=== PATIENT | male | born 1975 | race Caucasian/White ===

== ENCOUNTER 2025-02-03 16:47 | Inpatient (IN) | payer SELFPAY ==
[~2025-02-03] VITALS: Ht 167.6 cm; Wt 79.2 kg
[2025-02-03 17:52] VITALS: BP 108/61; TEMP 98.2; O2SAT 95
[2025-02-03] MEDS ORDERED: ONDANSETRON 4MG 2ML VIAL IV PRN (17:55)
[2025-02-03] MEDS ORDERED: ACETAMINOPHEN 325 MG TAB PO PRN (17:55)
[2025-02-03] MEDS ORDERED: MOM 30 ML SUSPENSION UDC PO PRN (17:55)
[2025-02-03 18:08] LABS: BASO # 0.0 10^3/uL (0.0-0.2); BASO % 0.2 % (0.0-1.0); EOS # 0.0 10^3/uL (0.0-0.5); EOS % 0.0 % (0.0-3.0); LYMPH # 3.1 10^3/uL (1.5-5.0); LYMPH % 18.1 % (24.0-44.0); MONO # 1.4 10^3/uL (0.0-0.8); MONO % 8.3 % (2.0-8.0); NEUTROPHILS # 12.4 10^3/uL (1.5-8.5); NEUTROPHILS % 72.7 % (36.0-66.0); PLATELET COUNT, AUTOMATED 442 10^3/uL (150-450)
[2025-02-03] MEDS ORDERED: AMLO1TAB24 PO (18:35)
[2025-02-03] MEDS ORDERED: ATOR40TA75 PO (18:35)
[2025-02-03] MEDS ORDERED: ACET-907 PO (18:36)
[2025-02-03] MEDS ORDERED: LISI40TA10 PO (18:36)
[2025-02-03 18:38] LABS: CALCIUM LEVEL 9.2 MG/DL (8.5-10.1); CARBON DIOXIDE LEVEL 24.0 MMOL/L (20-31); CHLORIDE LEVEL 96.0 MMOL/L (98-107); CREATININE FOR GFR 4.87 MG/DL (0.70-1.30); GLOMERULAR FILTRATION RATE 13.9 (>60); POTASSIUM SERUM 4.0 MMOL/L (3.5-5.1); SODIUM LEVEL 133.0 MMOL/L (136-145)
[2025-02-03] MEDS ORDERED: HOME MED LIST COMPLETE! XX SCH (18:40)
[2025-02-03 20:02] VITALS: BP 109/60; TEMP 98.1; O2SAT 98
[2025-02-03] MEDS: THIAMINE 100 MG TAB PO SCH (20:32)
[2025-02-03] MEDS: NS (Normal Saline) 0.9% 1,000 ML IV SCH (20:32)
[2025-02-03 22:00] VITALS: BP 109/60
[2025-02-04] MEDS: MAALOX 30 ML SUSP *UDC PO PRN (00:40)
[2025-02-04 03:37] VITALS: BP 127/81; TEMP 98.1; O2SAT 99
[2025-02-04 06:00] VITALS: BP 127/81
[2025-02-04 07:46] LABS: CALCIUM LEVEL 8.8 MG/DL (8.5-10.1); CARBON DIOXIDE LEVEL 25.0 MMOL/L (20-31); CHLORIDE LEVEL 103.0 MMOL/L (98-107); CREATININE FOR GFR 1.98 MG/DL (0.70-1.30); GLOMERULAR FILTRATION RATE 40.9 (>60); MAGNESIUM LEVEL 2.6 MG/DL (1.8-2.4); POTASSIUM SERUM 4.2 MMOL/L (3.5-5.1); SODIUM LEVEL 139.0 MMOL/L (136-145)
[2025-02-04 07:53] LABS: BASO # 0.0 10^3/uL (0.0-0.2); BASO % 0.1 % (0.0-1.0); EOS # 0.0 10^3/uL (0.0-0.5); EOS % 0.0 % (0.0-3.0); LYMPH # 1.3 10^3/uL (1.5-5.0); LYMPH % 13.2 % (24.0-44.0); MONO # 0.6 10^3/uL (0.0-0.8); MONO % 5.6 % (2.0-8.0); NEUTROPHILS # 8.0 10^3/uL (1.5-8.5); NEUTROPHILS % 80.6 % (36.0-66.0); PLATELET COUNT, AUTOMATED 376 10^3/uL (150-450)
[2025-02-04] MEDS: FOLIC ACID 1 MG TAB PO SCH (09:06)
[2025-02-04] MEDS: MULTIVITAMINS/MINERALS THERAP 1 TAB PO SCH (09:06)
[2025-02-04] MEDS: HEPARIN SOD 5000 UNITS/ML 1 ML VIAL/SYRINGE SC SCH (09:06)
[2025-02-04 12:00] VITALS: BP 129/70; TEMP 97.7; O2SAT 99
[2025-02-04 14:00] VITALS: BP 126/80
[2025-02-04 19:55] VITALS: BP 126/81; TEMP 97.7; O2SAT 98
[2025-02-04 22:00] VITALS: BP 126/81
[2025-02-05 04:00] VITALS: BP 164/97; TEMP 97.9; O2SAT 99
[2025-02-05 06:00] VITALS: BP 164/97
[2025-02-05 08:18] LABS: CALCIUM LEVEL 8.9 MG/DL (8.5-10.1); CARBON DIOXIDE LEVEL 23 MMOL/L (20-31); CHLORIDE LEVEL 110 MMOL/L (98-107); CREATININE FOR GFR 0.84 MG/DL (0.70-1.30); GLOMERULAR FILTRATION RATE > 90.0 (>60); MAGNESIUM LEVEL 2.1 MG/DL (1.8-2.4); POTASSIUM SERUM 3.9 MMOL/L (3.5-5.1); SODIUM LEVEL 143 MMOL/L (136-145)
[2025-02-05 12:00] VITALS: BP 150/85; TEMP 98.1; O2SAT 100
== END 2025-02-05 13:45 | disposition home or self-care (01) | DRG 469 ==
LOC: M MSPAV 17:41
PROVIDERS: ADMIT Student in an Organized Health Care Education/Training Program; ATTEND Student in an Organized Health Care Education/Training Program
PROC: B246ZZZ Ultrasonography of Right and Left Heart (ICD-10-PCS; principal; 2025-02-04)
DX: N17.9 Acute kidney failure, unspecified (principal); I10 Essential (primary) hypertension; K21.9 Gastro-esophageal reflux disease without esophagitis; E55.9 Vitamin D deficiency, unspecified; E78.5 Hyperlipidemia, unspecified; M54.50 Low back pain, unspecified; G89.29 Other chronic pain; F17.200 Nicotine dependence, unspecified, uncomplicated; K52.9 Noninfective gastroenteritis and colitis, unspecified; F10.10 Alcohol abuse, uncomplicated; F12.10 Cannabis abuse, uncomplicated; R11.16 Cannabis hyperemesis syndrome; E86.0 Dehydration; Z71.51 Drug abuse counseling and surveillance of drug abuser; N26.1 Atrophy of kidney (terminal)

== ENCOUNTER → 2025-02-03 | Outpatient (REF) ==
[~2025-02-03] MED LIST: ACET-907 PO; AMLO1TAB24 PO; ATOR40TA75 PO; LISI40TA10 PO
== END ==
LOC: M CFLAB 13:07
DX: Z03.89 Encounter for observation for other suspected diseases and conditions ruled out (principal)